=== PATIENT | female | born 1990 | race Caucasian/White ===

== ENCOUNTER 2017-05-05 12:28 | Emergency (ER) | payer SELFPAY ==
[~2017-05-05] VITALS: Ht 160 cm; Wt 96.5 kg
[2017-05-05 12:34] VITALS: Ht 160 cm; Wt 96.5 kg
[2017-05-05 13:45] LABS: ADD SCAN DIFF NO
[2017-05-05 13:46] LABS: ABNORMAL IP MESSAGE 1; BASOPHILS % 0.6 % (0.0-2.0); EOSINOPHILS # 0.1 10^3/ul (0.0-0.5); EOSINOPHILS % 1.2 % (0.0-7.0); HEMATOCRIT 32.7 % (37.0-47.0); HEMOGLOBIN 9.5 g/dl (12.0-16.0); LYMPHOCYTES # 2.1 10^3/ul (0.8-2.9); LYMPHOCYTES % 29.9 % (15.0-51.0); MEAN CORPUSCULAR HEMOGLOBIN 18.4 pg (29.0-33.0); MEAN CORPUSCULAR HGB CONC 29.1 g/dl (32.0-37.0); MEAN CORPUSCULAR VOLUME 63.2 fl (82.0-101.0); MONOCYTE # 0.7 10^3/ul (0.3-0.9); MONOCYTES % 10.5 % (0.0-11.0); NEUTROPHILS % 57.4 % (39.0-77.0); PLATELET COUNT 310 10^3/UL (140-415); RED BLOOD COUNT 5.17 10^6/ul (4.20-5.40); RED CELL DISTRIBUTION WIDTH 20.8 % (11.5-14.5); WHITE BLOOD COUNT 6.9 10^3/ul (4.8-10.8)
[2017-05-05 13:54] LABS: ADD UMIC YES; UR BILIRUBIN (Dip) NEGATIVE (NEGATIVE); UR BLOOD (Dip) 3+ (NEGATIVE); UR CLARITY CLEAR (CLEAR); UR COLOR LT. YELLOW (YELLOW); UR GLUCOSE (Dip) NEGATIVE (NEGATIVE); UR KETONES (Dip) NEGATIVE (NEGATIVE); UR LEUKOCYTE ESTERASE (Dip) NEGATIVE (NEGATIVE); UR NITRITE (Dip) NEGATIVE (NEGATIVE); UR TOTAL PROTEIN (Dip) NEGATIVE (NEGATIVE); UR UROBILINOGEN (Dip) 0.2 E.U./dL (0.1-1.0)
--- NOTE | 2017-05-05 14:02 | RADRPT ---
PROCEDURE: OBSTETRICAL ULTRASOUND WITH ENDOVAGINAL IMAGES CLINICAL INDICATION: Vaginal Bleed () TECHNIQUE: Multiple sonographic images of the pelvis were obtained utilizing a transabdominal and endovaginal technique. The images were reviewed on a PACS workstation. COMPARISON: None. LMP: 02/19/2017 Gestational age by LMP: 10 weeks, 5 days FINDINGS: The uterus measures 8.5 x 5.3 x 6.0 cm. A possible intrauterine gestational sac is identified with mean sac diameter of 0.82 cm which would be consistent with a gestational age of 5 weeks, 3 days and an estimated date of delivery of 018 . No yolk sac or pole is identified within it. The right ovary measures 3.3 x 1.9 x 2.0 cm. The left ovary measures 4.6 x 2.9 x 3.8 cm. There is no rmal vascular flow in both ovaries. There is a 3.5 cm cystic lesion with low level internal echoes in the left ovary which may be a hemo rrhagic/corpus luteal cyst. It is not associated with significant peripheral vascular flow. No significant pelvic free fluid is identified. IMPRESSION: A possible intrauterine gestational sac is identified which would be consistent with a gestational a ge of 5 weeks, 3 days . No yolk sac or pole is identified within it. Findings may be due to a n early intrauterine although an ectopic is not excluded. Short-term follow-up ultrasound and serial Beta HCG measurements are recommended for further evaluation. 3.5 cm minimally complex cystic lesion in the left ovary may be a hemorrhagic/corpus luteal cyst. A ttention on follow-up is recommended. The right ovary and bilateral adnexa are unremarkable. RPTAT: EE Physician Kalli Date Time Electronically viewed and signed by Physician Kalli on 05/05/2017 14:02 /
[2017-05-05 14:03] LABS: UR BACTERIA MANY; URINE RBCS >200 /HPF (0)
[2017-05-05] MEDS ORDERED: CEPH-443 PO (14:42)
[2017-05-05] MEDS ORDERED: DOCU-144 PO (14:44)
[2017-05-05] MEDS ORDERED: FER325 PO (14:44)
--- NOTE | 2017-05-05 14:58 | ERD ---
ER Documentation Chief Complaint Date/Time DATE: 05/05/17 TIME: 14:57 Chief Complaint vag bleed and pelvic pain started this morning, 10 wks HPI This is a 26-year-old female presenting to the emergency department complaining of vaginal bleeding and pelvic pain that started this morning. Patient states the pain is mild to moderate in severity. She states that she has placed 1 pad since this morning, she states the bleeding is mild and mostly when she wipes. Patient states her last menstrual period was February 19 however she is irregular. She was seen at [facility] on Wednesday and she has an appointment to see her [facility] again tomorrow for an ultrasound. Patient denies any fevers, nausea, vomiting, diarrhea. Denies vaginal discharge ROS All systems reviewed and are negative except as per history of present illness. Medications Home Meds Active Scripts Ferrous Sulfate* (Ferrous Sulfate*) 325 Mg Tabec, 325 MG PO DAILY, #30 TAB Prov:DIOGO CANO PA-C 05/05/17 Docusate Sodium* (Colace*) 100 Mg Capsule, 100 MG PO BID, #20 CAP Prov:DIOGO CANO PA-C 05/05/17 Cephalexin* (Keflex*) 500 Mg Capsule, 500 MG PO QID for 7 Days, CAP Prov:DIOGO CANO PA-C 05/05/17 Physical Exam Vitals Vital Signs Date Time Temp Pulse Resp B/P Pulse Ox O2 Delivery O2 Flow Rate FiO2 05/05/17 12:34 98.4 68 18 130/79 98 Physical Exam General: well-developed/well-nourished, in no apparent distress, non-toxic appearing HENT: NC/AT Eyes: Conjunctiva normal Neck: Supple Pulm: CTA bilaterally, normal breathing CV: Normal S1S2 GI: Soft, non-distended, normal bowel sounds, TTP on suprapubic region Back: No midline tenderness, no masses, No CVAT Ext: No clubbing, cyanosis, or edema Neuro: Alert and orientated Skin: intact, normal turgor Psych: Normal mood and mentation Result Diagram: 05/05/17 1320 Results 24 hrs Laboratory Tests Test 05/05/17 13:20 White Blood Count 6.910^3/ul Red Blood Count 5.1710^6/ul Hemoglobin 9.5g/dl Hematocrit 32.7% Mean Corpuscular Volume 63.2fl Mean Corpuscular Hemoglobin 18.4pg Mean Corpuscular Hemoglobin Concent 29.1g/dl Red Cell Distribution Width 20.8% Platelet Count 06732^3/UL Mean Platelet Volume fl Neutrophils % 57.4% Lymphocytes % 29.9% Monocytes % 10.5% Eosinophils % 1.2% Basophils % 0.6% Nucleated Red Blood Cells % 0.0/100WBC Neutrophils # 4.010^3/ul Lymphocytes # 2.110^3/ul Monocytes # 0.710^3/ul Eosinophils # 0.110^3/ul Basophils # 0.010^3/ul Nucleated Red Blood Cells # 0.010^3/ul Urine Color LT. YELLOW Urine Clarity CLEAR Urine pH 5.5 Urine Specific Onward 1.015 Urine Ketones NEGATIVE Urine Nitrite NEGATIVE Urine Bilirubin NEGATIVE Urine Urobilinogen 0.2 E.U./dL Urine Leukocyte Esterase NEGATIVE Urine Microscopic RBC >200/HPF Urine Microscopic WBC 5-10/HPF Urine Epithelial Cells FEW Urine Bacteria MANY Urine Hemoglobin 3+ Urine Glucose NEGATIVE% Urine Total Protein NEGATIVE Beta HCG, Quantitative 3878.5mIU/ml Procedures/MDM This is a 26-year-old female presenting to the emergency department who is with last menstrual period being February 19 however she is irregular with her menstrual periods comes to the emergency department for mild vaginal bleeding and pelvic pain since this morning. Likely early vs failed vs ectopic . Patient was also found to have polyuria in her urine and will empirically be treated for a urinary tract infection. Lab work was done in the ED. Patient's beta hCG was 3878. OB ultrasound showed that a possible intrauterine gestational sac with a gestational age of 5 weeks however there is no yolk sac or pole. Findings may be due to an early intrauterine although an ectopic is not excluded. Short-term follow-up ultrasound and serial Beta HCG measurements are recommended for further evaluation. Patient was also found to have microcytic anemia with a hemoglobin of 9.5. I discussed this with the patient and her primary care physician has placed her on iron sulfate this past week. Patient has stable vital signs, she appears well to be discharged home. Patient is following up with her [facility] tomorrow, I have discussed with her to take the documents with her. I discussed to return in 2 days to trend her beta- hCG and repeat ultrasound. Patient understands and agrees with this plan Beta hCG 3878 OB ultrasound: A possible intrauterine gestational sac is identified which would be consistent with a gestational age of 5 weeks, 3 days . No yolk sac or pole is identified within it. Findings may be due to an early intrauterine although an ectopic is not excluded. Short-term follow-up ultrasound and serial Beta HCG measurements are recommended for further evaluation. 3.5 cm minimally complex cystic lesion in the left ovary may be a hemorrhagic/ corpus luteal cyst. Attention on follow-up is recommended. The right ovary and bilateral adnexa are unremarkable. Departure Diagnosis: Primary Impression: Vaginal bleeding in patient at less than 20 weeks ges... Additional Impressions: Microcytic anemia UTI (urinary tract infection) Condition: Stable Patient Instructions: Understanding Urinary Tract Infections (UTIs), Bleeding During Early , Anemia, Iron Deficiency (Adult) Additional Instructions: FOLLOW UP WITH YOUR PRIMARY CARE PHYSICIAN TOMORROW.Return to this facility if you are not improving as expected. Take all medicines as directed. Return to this facility if you are not improving as expected. DIOGO CANO PA-C May 05, 2017 14:58
== END 2017-05-05 14:58 | disposition home or self-care (01) ==
LOC: FTE 12:28
DX: O20.9 Hemorrhage in early pregnancy, unspecified (principal); O99.011 Anemia complicating pregnancy, first trimester; O23.41 Unspecified infection of urinary tract in pregnancy, first trimester; R10.2 Pelvic and perineal pain; Z3A.01 Less than 8 weeks gestation of pregnancy
CPT/HCPCS: 36415; 76801; 76817; 81001; 84702; 85025; 86900; 86901